=== PATIENT | female | born 1955 | race Caucasian/White ===

== ENCOUNTER 2021-03-16 08:59 | Emergency (ER) | payer OTHER ==
[~2021-03-16] VITALS: Ht 152.4 cm; Wt 68.0 kg
[2021-03-16] MEDS ORDERED: ALLEGRA ALLERGY60 MG (09:10)
[2021-03-16] MEDS ORDERED: ATORVASTATIN CA10 MG PO (09:10)
== END 2021-03-16 12:38 | disposition home or self-care (01) ==
LOC: ER 08:59
DX: N93.8 Other specified abnormal uterine and vaginal bleeding (principal); N95.0 Postmenopausal bleeding